=== PATIENT | female | born 1960 | race Caucasian/White ===

== ENCOUNTER 2023-05-01 18:48 | Emergency (ER) | payer BC, SELFPAY ==
[2023-05-01 18:49] VITALS: BP 143/72; PULSE 99; RESP 20; TEMP 36.2; O2SAT 94; BMI 29.2
== END 2023-05-01 19:40 | disposition left against medical advice (07) ==
LOC: ED 19:44
DX: Z53.21 Procedure and treatment not carried out due to patient leaving prior to being seen by health care provider (principal)